=== PATIENT | male | born 1950 | race Hispanic/Latino ===

== ENCOUNTER → 2017-12-02 | Outpatient (CLI) | payer MEDICARE ==
--- NOTE | 2017-12-03 10:34 | Cardiology Report ---
DATE OF STUDY: December 02, 2017 DOPPLER SCAN OF RIGHT LEG VEINS The right leg veins were interrogated using the duplex scanning method. The veins were compressible. There was no definite deep venous thrombosis. CONCLUSIONS 1. No definite deep venous thromboses involving the right leg veins. 2. The left leg was not studied. Job#: [id number] RI cc:LD RIVERA MD
== END ==
LOC: RAD 14:10
PROVIDERS: ATTEND Family Medicine
DX: M79.604 Pain in right leg (principal)
CPT/HCPCS: 93971

== ENCOUNTER → 2019-11-09 | Outpatient (CLI) | payer MEDICARE ==
--- NOTE | 2019-11-09 12:36 | Diagnostic Imaging Report ---
Exam: Lumbar spine series Clinical history: Back pain Findings: There is no evidence of acute fracture or malalignment. The vertebral bodies appear well preserved. Degenerative disc disease is noted at multiple levels most pronounced at L4-5 with decrease in disc height. Small anterior marginal osteophytes are also noted. The soft tissue is unremarkable. Impression: 1. No radiographic evidence of acute osseous injury. Degenerative changes as noted. Signed by: Dr. Reji Oh MD on 11/09/2019 12:33 PM
== END ==
LOC: RAD 11:07
PROVIDERS: ATTEND Family Medicine
DX: M54.5 Low back pain (principal)
CPT/HCPCS: 72110

== ENCOUNTER → 2020-04-03 | Outpatient (CLI) | payer MEDICARE ==
[~2020-04-03] MED LIST: BUPIVACAINE 0.25%/EPI 30ML SDV INJ ONE
--- NOTE | 2020-04-03 08:27 | Diagnostic Imaging Report ---
EXAMINATION: CHEST 2 VIEWS INDICATION: Pre-operative COMPARISON: None FINDINGS: LINES/TUBES:None LUNGS:The lungs are well-inflated. No focal consolidation or pulmonary edema. PLEURA:No pleural effusion or pneumothorax. MEDIASTINUM:The cardiomediastinal silhouette appears normal in size and shape. BONES/SOFT TISSUES:No acute osseous injury. ABDOMEN:No free air under the diaphragm. IMPRESSION: No focal pneumonia or pulmonary edema. Signed by: Jocelyne Stern MD on 04/03/2020 8:24 AM
== END ==
LOC: RAD 07:51
PROVIDERS: ATTEND Family Medicine
DX: Z01.810 Encounter for preprocedural cardiovascular examination (principal)
CPT/HCPCS: 71046